=== PATIENT | male | born 1995 | race Caucasian/White ===

== ENCOUNTER 2021-10-02 15:45 | Emergency (ER) | payer BC ==
[2021-10-02 16:17] LABS: HEMOGLOBIN 15.9 gm/dl (14.0-17.5); RED BLOOD COUNT 5.33 M/UL (4.20-5.50); WHITE BLOOD COUNT 6.3 K/UL (4.5-11.0)
[2021-10-02 16:48] LABS: BUN/CREATININE RATIO 17 (0-10)
== END 2021-10-02 22:20 | disposition home or self-care (01) ==
LOC: ER1 15:45
PROVIDERS: Physician Assistant
DX: U07.1 COVID-19 (principal); Z91.012 Allergy to eggs; Z86.16 Personal history of COVID-19
CPT/HCPCS: 71045; 80053; 82550; 82553; 83605; 83874; 84439; 84443; 84484; 85025; 85379; 87040; 93005; 99285; U0002